=== PATIENT | male | born 1955 | race Two or more races ===

== ENCOUNTER 2025-01-05 10:16 | Inpatient (IN) | payer OTHER ==
[~2025-01-05] VITALS: Ht 167.6 cm; Wt 72.6 kg
[2025-01-05 10:02] VITALS: BP 130/78
[2025-01-05 10:05] VITALS: BP 144/65
[~2025-01-05 10:16] MED LIST: FERROUS SULFAT325 MG; GLUCOTROL XL5 MG; IRON236 MG PO; JANUVIA100 MG PO; METFORMIN HCL1000 M1 PO; SIMVASTATIN40 MG; VALSARTAN80 MG PO
[2025-01-05 12:49] LABS: RH POSITIVE
[2025-01-09] MEDS ORDERED: CEFTRIAXONE SODIUM 2,000 MG VIAL ONE (08:10)
[2025-01-09] MEDS ORDERED: METRONIDAZOLE/SODIUM CHLORIDE 500 MG/100 ML PIGGYBACK IV ONE (08:10)
[2025-01-09] MEDS ORDERED: LIDOCAINE HCL 1%/EPINEPHRINE 20ML VIAL IJ ONE (10:45)
[2025-01-09] MEDS ORDERED: CHLORHEXIDINE GLUCONATE 120 ML BOTTLE TOP ONE (10:45)
[2025-01-09] MEDS ORDERED: BUPIVACAINE HCL/MPF 0.5% 30ML VIAL ONE (10:45)
[2025-01-09] MEDS ORDERED: SUGAMMADEX SODIUM 200 MG/2 ML VIAL IV ONE (16:20)
[2025-01-09] MEDS ORDERED: MORPHINE SULFATE 4 MG/ML CARTRIDGE IV PRN (16:30)
[2025-01-09] MEDS ORDERED: RINGERS SOLUTION,LACTATED 1,000 ML IV SCH (16:30)
[2025-01-09] MEDS ORDERED: DEXTROSE 50 % IN WATER 0.5 G/ML VIAL IV PRN (16:30)
[2025-01-09] MEDS ORDERED: ONDANSETRON HCL 2 MG/ML VIAL IV PRN (16:30)
[2025-01-09] MEDS ORDERED: ENALAPRILAT DIHYDRATE 1.25 MG/ML VIAL IV PRN (16:45)
[2025-01-09] MEDS ORDERED: OxyCODONE HCL 5 MG TABLET (ROXICODONE) PO PRN (16:45)
[2025-01-09] MEDS ORDERED: POLYETHYLENE GLYCOL 3350 17 GM BLIST.PACK PO SCH (17:00)
[2025-01-09] MEDS ORDERED: SIMETHICONE 125 MG CAPSULE PO SCH (17:00)
[2025-01-09] MEDS ORDERED: ACETAMINOPHEN 500 MG GEL..CAP PO SCH (18:00)
[2025-01-09 19:48] LABS: BASO % 0.1 % (0.1-1.2); HEMATOCRIT 35.3 % (40.1-51.0); HEMOGLOBIN 11.9 g/dL (13.7-17.5); LYMPH # 0.49 (1.18-3.74); LYMPH % 3.3 % (19.3-53.1); MEAN CORPUSCULAR HEMOGLOBIN 31.6 pg (25.6-32.2); MONO # 0.76 (0.24-0.82); MONO % 5.1 % (4.7-12.5); NEUT # 13.64 (1.56-6.13); NEUT % 91.2 % (34.0-71.1); PLATELET COUNT 382 K/uL (163-369); RED BLOOD COUNT 3.76 M/uL (4.63-6.08); RED CELL DISTRIBUTION WIDTH 11.9 % (11.6-14.4)
[2025-01-09] MEDS ORDERED: SIMETHICONE 125 MG CAPSULE PO ONE (20:05)
[2025-01-09] MEDS ORDERED: ACETAMINOPHEN 500 MG GEL..CAP PO ONE (20:06)
[2025-01-09] MEDS ORDERED: FAMOTIDINE/PF 20 MG/2 ML VIAL ONE (20:06)
[2025-01-09 20:10] VITALS: BP 130/78
[2025-01-09 20:12] LABS: ALBUMIN 3.8 gm/dL (3.4-5.0); CALCIUM 8.8 mg/dL (8.5-10.1); CREATININE SERUM 0.91 mg/dL (0.70-1.30); GFR 82.36; PHOSPHOROUS 2.9 mg/dL (2.5-4.9); POTASSIUM 4.39 mEq/L (3.5-5.1)
[2025-01-09 20:52] LABS: MAGNESIUM 1.2 mg/dL (1.8-2.4)
[2025-01-09] MEDS ORDERED: FAMOTIDINE/PF 20 MG/2 ML VIAL IV PUSH SCH (21:00)
[2025-01-09] MEDS ORDERED: MAGNESIUM SULFATE 50% 1,000 MG/2 ML VIAL IV ONE (21:30)
[2025-01-09] MEDS ORDERED: MAGNESIUM SULFATE IN WATER 2 GM/50 ML PIGGYBAG IV ONE (21:37)
[2025-01-10 02:40] VITALS: BP 143/69; O2SAT 95
[2025-01-10 08:09] LABS: BASO % 0.3 % (0.1-1.2); EOS # 0.01 (0.04-0.54); EOS % 0.1 % (0.7-7.0); HEMATOCRIT 33.9 % (40.1-51.0); HEMOGLOBIN 11.3 g/dL (13.7-17.5); LYMPH # 0.79 (1.18-3.74); LYMPH % 7.8 % (19.3-53.1); MONO # 0.88 (0.24-0.82); MONO % 8.6 % (4.7-12.5); NEUT # 8.43 (1.56-6.13); NEUT % 82.8 % (34.0-71.1); PLATELET COUNT 368 K/uL (163-369); RED BLOOD COUNT 3.65 M/uL (4.63-6.08)
[2025-01-10 08:49] LABS: ALBUMIN 3.4 gm/dL (3.4-5.0); CALCIUM 8.6 mg/dL (8.5-10.1); CREATININE SERUM 0.88 mg/dL (0.70-1.30); GFR 85.61; PHOSPHOROUS 3.1 mg/dL (2.5-4.9); POTASSIUM 4.59 mEq/L (3.5-5.1)
[2025-01-10] MEDS ORDERED: LACTOBACILLUS ACIDOPHILUS 1 CAP CAP PO SCH (09:00)
[2025-01-10] MEDS ORDERED: MAGNESIUM CHLORIDE 70 MG TABLET.DR PO SCH (09:00)
[2025-01-10 09:54] VITALS: BP 135/61; O2SAT 98
[2025-01-10 16:00] VITALS: BP 151/75; O2SAT 96
[2025-01-10] MEDS ORDERED: ENOXAPARIN SODIUM 40 MG/0.4 ML SYRINGE SUBCUTANEO SCH (17:00)
[2025-01-11 01:20] VITALS: BP 142/74; O2SAT 97
[2025-01-11 08:57] VITALS: BP 146/71; O2SAT 95
[2025-01-11 16:00] VITALS: BP 160/71; O2SAT 94
[2025-01-11] MEDS ORDERED: SIMVASTATIN 40 MG TABLET PO SCH (17:00)
[2025-01-11] MEDS ORDERED: NAPH,MB-DB/K PH,MBDB 1 PKT PACKET PO ONE (17:30)
[2025-01-11] MEDS ORDERED: MORPHINE SULFATE 4 MG/ML CARTRIDGE IV PRN (17:30)
[2025-01-11] MEDS ORDERED: OxyCODONE HCL 5 MG TABLET (ROXICODONE) PO PRN (17:30)
[2025-01-12 07:34] LABS: BASO % 0.2 % (0.1-1.2); EOS # 0.07 (0.04-0.54); EOS % 0.5 % (0.7-7.0); HEMATOCRIT 34.5 % (40.1-51.0); HEMOGLOBIN 11.3 g/dL (13.7-17.5); LYMPH # 0.73 (1.18-3.74); LYMPH % 5.7 % (19.3-53.1); MEAN CORPUSCULAR HEMOGLOBIN 31.6 pg (25.6-32.2); MONO # 0.79 (0.24-0.82); MONO % 6.2 % (4.7-12.5); NEUT # 11.05 (1.56-6.13); NEUT % 86.9 % (34.0-71.1); PLATELET COUNT 344 K/uL (163-369); RED BLOOD COUNT 3.58 M/uL (4.63-6.08); RED CELL DISTRIBUTION WIDTH 12.4 % (11.6-14.4)
[2025-01-12 08:18] LABS: CALCIUM 8.8 mg/dL (8.5-10.1); CREATININE SERUM 0.84 mg/dL (0.70-1.30); GFR 90.33; MAGNESIUM 1.8 mg/dL (1.8-2.4); POTASSIUM 4.47 mEq/L (3.5-5.1)
[2025-01-12 08:34] VITALS: BP 145/73; O2SAT 94
[2025-01-12 08:51] LABS: PHOSPHOROUS 1.5 mg/dL (2.5-4.9)
[2025-01-12] MEDS ORDERED: FAMOtidine 20 MG TABLET PO SCH (09:00)
[2025-01-12] MEDS ORDERED: PATIENTS OWN MEDICATION (MEDICAMENTO EN PISO) PO SCH (09:00)
[2025-01-12] MEDS ORDERED: MAGNESIUM SULFATE IN WATER 2 GM/50 ML PIGGYBAG IV NR (11:20)
[2025-01-12] MEDS ORDERED: INSULIN LISPRO 1,000 UNIT/10 ML UNITS SUBCUTANEO PRN (12:30)
[2025-01-12] MEDS ORDERED: DEXTROSE 50 % IN WATER 0.5 G/ML VIAL IV PRN (12:30)
[2025-01-12] MEDS ORDERED: SUGAMMADEX SODIUM 200 MG/2 ML VIAL IV ONE (12:45)
[2025-01-12] MEDS ORDERED: NAPH,MB-DB/K PH,MBDB 1 PKT PACKET PO SCH (13:00)
[2025-01-12] MEDS ORDERED: POTASSIUM PHOS,M-BASIC-D-BASIC 3 MM/ML VIAL IV NR (13:00)
[2025-01-12 15:43] LABS: URINE APPEARANCE Clear; URINE BILIRRUBIN Negative (NEGATIVE); URINE BLOOD Negative; URINE COLOR Yellow; URINE KETONE 15 (NEGATIVE); URINE LEUKOCYTE Negative; URINE NITRATE Negative; URINE PROTEIN 30 (NEGATIVE)
[2025-01-12 15:44] LABS: URINE BACTERIA 14.6 uL (0.0-1933)
[2025-01-12 16:05] LABS: URINE EPITHELIAL CELLS 0.9 uL (0.0-38.8); URINE GLUCOSE >=1000 MG/DL (NEGATIVE)
[2025-01-12 16:45] VITALS: BP 149/69; O2SAT 96
[2025-01-13] VITALS: BP 147/76; O2SAT 95
[2025-01-13 06:45] LABS: BASO % 0.3 % (0.1-1.2); EOS # 0.21 (0.04-0.54); HEMATOCRIT 32.6 % (40.1-51.0); HEMOGLOBIN 11.1 g/dL (13.7-17.5); LYMPH # 0.66 (1.18-3.74); LYMPH % 6.3 % (19.3-53.1); MEAN CORPUSCULAR HEMOGLOBIN 31.6 pg (25.6-32.2); MONO # 0.87 (0.24-0.82); MONO % 8.2 % (4.7-12.5); NEUT # 8.76 (1.56-6.13); PLATELET COUNT 356 K/uL (163-369); RED BLOOD COUNT 3.51 M/uL (4.63-6.08); RED CELL DISTRIBUTION WIDTH 12.1 % (11.6-14.4)
[2025-01-13 07:46] LABS: ALBUMIN 2.6 gm/dL (3.4-5.0); CALCIUM 8.5 mg/dL (8.5-10.1); CREATININE SERUM 0.68 mg/dL (0.70-1.30); GFR 115.28; POTASSIUM 4.15 mEq/L (3.5-5.1)
[2025-01-13 07:57] LABS: PHOSPHOROUS 1.9 mg/dL (2.5-4.9)
[2025-01-13 08:00] VITALS: BP 151/65; O2SAT 95
[2025-01-13] MEDS ORDERED: NAPH,MB-DB/K PH,MBDB 1 PKT PACKET PO SCH (09:00)
[2025-01-13] MEDS ORDERED: POTASSIUM PHOS,M-BASIC-D-BASIC 3 MM/ML VIAL IV SCH (12:00)
[2025-01-14 01:30] VITALS: BP 125/67; O2SAT 96
[2025-01-14 04:24] LABS: ALBUMIN 2.5 gm/dL (3.4-5.0); CALCIUM 8.4 mg/dL (8.5-10.1); CREATININE SERUM 0.82 mg/dL (0.70-1.30); GFR 92.88; MAGNESIUM 1.8 mg/dL (1.8-2.4); PHOSPHOROUS 2.8 mg/dL (2.5-4.9); POTASSIUM 4.49 mEq/L (3.5-5.1)
[2025-01-14] MEDS ORDERED: NAPH,MB-DB/K PH,MBDB 1 PKT PACKET PO STA (06:29)
[2025-01-14 09:27] VITALS: BP 147/68; O2SAT 95
== END 2025-01-14 15:55 | DRG 330 ==
LOC: O/R 01-09 08:12 → SURH 01-09 10:30 → SURG 01-09 18:10
PROVIDERS: ADMIT Colon & Rectal Surgery; ATTEND Colon & Rectal Surgery
PROC: 0DNW4ZZ Release Peritoneum, Percutaneous Endoscopic Approach (ICD-10-PCS; 2025-01-09)
PROC: 0DN84ZZ Release Small Intestine, Percutaneous Endoscopic Approach (ICD-10-PCS; 2025-01-09)
PROC: 0DTF4ZZ Resection of Right Large Intestine, Percutaneous Endoscopic Approach (ICD-10-PCS; principal; 2025-01-09 12:45)
DX: C18.2 Malignant neoplasm of ascending colon (principal); J98.11 Atelectasis; K56.51 Intestinal adhesions [bands], with partial obstruction; E83.39 Other disorders of phosphorus metabolism; R59.0 Localized enlarged lymph nodes; E11.9 Type 2 diabetes mellitus without complications; I10 Essential (primary) hypertension; Z79.84 Long term (current) use of oral hypoglycemic drugs